=== PATIENT | female | born 1960 | race Caucasian/White ===

== ENCOUNTER → 2016-12-22 | Outpatient (CLI) | payer BC ==
--- NOTE | 2016-12-22 13:50 | RAD ---
EXAM DESCRIPTION: XR NECK SOFT TISSUE CLINICAL HISTORY: 56 y/o ,F, R/O EPIGLOTTITIS COMPARISON: None. IMPRESSION: Degenerative change at C6-7 peer the prevertebral soft tissues are unremarkable. The epiglottis is likely unremarkable on the lateral radiograph. Clips seen within the thyroid bed. Electronically signed by: Umair Dahl MD 12/22/2016 13:49
== END | disposition home or self-care (01) ==
LOC: YCFC.O 12:30
PROVIDERS: ATTEND Nurse Practitioner Family
DX: R06.02 Shortness of breath (principal); Q21.1 Atrial septal defect; R06.1 Stridor; J06.9 Acute upper respiratory infection, unspecified

== ENCOUNTER → 2017-09-05 | Outpatient (CLI) | payer BC ==
--- NOTE | 2017-09-06 15:26 | MAM ---
EXAM DESCRIPTION: 3D Screening BILATERAL : Digital Mammography. CLINICAL HISTORY: 57 years Female SCREENING . No complaints. Remote family history of breast and ovarian cancer. Postmenopausal with hysterectomy. On HRT 5 or more years ago.. COMPARISON: 2-D digital screening bilateral study 04/27/2012.. No prior reports available. TECHNIQUE: Bilateral CC and MLO projection full-field images, 3-D tomosynthesis digital mammographic technique. Also bilateral synthesized CC/ MLO full-field images. CAD not utilized. FINDINGS: The breast parenchymal density pattern is: Scattered areas of fibroglandular density. No skin thickening or nipple retraction bilateral intramammary lymph nodes. Skin moles medial and upper right breast. No focal, stellate mass or density, focal asymmetry , and no suspicious microcalcifications bilaterally. Stable mammograms compared to prior study, taking into account differences in mammographic technique IMPRESSION: BI-RADS CATEGORY: 2 - BENIGN. FOLLOW-UP: Routine mammography screening, digital-bilateral, one year interval from August 2017. Written communication explaining the results and follow-up will be mailed to the patient and referring care provider. According to the [employer], yearly mammograms are recommended starting at age 40 and continuing as long as a woman is in good health. Any breast change noted on a breast self-exam should be reported promptly to the patient's healthcare provider. Breast MRI is recommended for women with an approximately 20-25% or greater lifetime risk of breast cancer, including women with a strong family history of breast or ovarian cancer and women who have been treated for Hodgkin's disease. A negative mammographic report should not delay tissue diagnosis in patients with significant clinical history or physical findings. Extremely dense breast tissue limits the sensitivity of digital mammography. Electronically signed by: Cecil Gupta MD 09/06/2017 3:24 PM CDT
== END | disposition home or self-care (01) ==
LOC: MAMMO 10:21
PROVIDERS: ATTEND Family Medicine
DX: Z12.31 Encounter for screening mammogram for malignant neoplasm of breast (principal)
CPT/HCPCS: 77063; G0202